=== PATIENT | female | born 1965 | race Caucasian/White ===

== ENCOUNTER 2018-05-11 07:37 | Emergency (ER) | payer OTHER ==
[~2018-05-11] VITALS: Ht 170.2 cm; Wt 63.5 kg
[2018-05-11 08:05] LABS: BASO # 0.1 x10^3/uL (0.0-0.2); BASO % 1 % (0-3); EOS # 0.2 x10^3/uL (0.0-0.7); EOS % 2 % (0-3); HEMATOCRIT 41.9 % (36.0-47.0); HEMOGLOBIN 14.9 g/dL (12.0-15.5); LYMPH % 41 % (24-48); MEAN CORPUSCULAR HEMOGLOBIN 33 pg (25-35); MEAN CORPUSCULAR HGB CONC 36 g/dL (31-37); MEAN CORPUSCULAR VOLUME 91 fL (79-100); MONO # 0.5 x10^3/uL (0.0-1.1); MONO % 5 % (0-9); NEUT % 51 % (31-73); PLATELET COUNT 264 x10^3/uL (140-400); RED BLOOD COUNT 4.59 x10^6/uL (3.50-5.40); RED CELL DISTRIBUTION WIDTH 13.4 % (11.5-14.5); WHITE BLOOD COUNT 9.7 x10^3/uL (4.0-11.0)
[2018-05-11 08:15] LABS: PROTHROMBIN TIME PATIENT 12.3 SEC (11.7-14.0)
[2018-05-11 08:18] LABS: CALCIUM 8.8 mg/dL (8.5-10.1); CREATININE 0.7 mg/dL (0.6-1.0); GFR 87.5; POTASSIUM 4.2 mmol/L (3.5-5.1)
--- NOTE | 2018-05-11 08:20 | EKG ---
[facility] [address] [place] [address] Test Date: 2018-05-11 Test Time: 07:43:15 Pat Name: MARK DAVIS Department: Room: Gender: F Lvn Lpn: : 1965 Requested By: JAZZMINE SHAIKH Order Number: [id number] Reading MD: Measurements Intervals Jesse Rate: 83 P: 74 NC: 144 QRS: 85 QRSD: 76 T: 64 QT: 374 QTc: 445 Interpretive Statements SINUS RHYTHM T ABNORMALITY IN ANTEROSEPTAL LEADS ABNORMAL ECG RI6.01 No previous ECG available for comparison
--- NOTE | 2018-05-11 08:31 | PHYS DOC ---
Past Medical History Past Medical History: Asthma, Gallstones Past Surgical History: Cholecystectomy, Hysterectomy Alcohol Use: None Drug Use: None Adult General Chief Complaint Chief Complaint: CHEST PAIN HPI HPI Patient is a 52 year old female who presents with neck and back pain. The patient has a chronic history of degenerative disc disease of her neck. She is status post surgery with rods placement. Today, she presents to the ER complaining of neck pain that radiates to the left shoulder and sometimes to her chest. She isn't having symptoms since last night. She states she awoke and could not turn her head to the left. She denies any shortness of breath. She denies recent illness or fever or cough. Pain is worse with movement and relieved when she is at rest. Pain is described as a muscle spasm. She took some Tylenol and some sort of muscle relaxer at home for symptom relief but these medications did not help. Review of Systems Review of Systems Constitutional: Denies fever or chills Eyes: Denies change in visual acuity HENT: Denies nasal congestion or sore throat Respiratory: Denies cough or shortness of breath Cardiovascular: No additional information not addressed in HPI GI: Denies abdominal pain, nausea : Denies dysuria or hematuria Musculoskeletal: chronic MSK pain Neurologic: Denies headache All other systems were reviewed and found to be within normal limits, except as documented in this note. Current Medications Current Medications Current Medications Medications (Trade) Dose Ordered Sig/John Start Time Stop Time Status Last Admin Dose Admin Lorazepam (Ativan) 0.5 mg 1X ONCE 05/11/18 09:15 05/11/18 09:16 DC 05/11/18 09:25 0.5 MG Morphine Sulfate (Morphine Sulfate) 4 mg 1X ONCE 05/11/18 09:15 05/11/18 09:16 DC 05/11/18 09:26 4 MG Ondansetron HCl (Zofran) 4 mg 1X ONCE 05/11/18 08:30 05/11/18 08:31 DC 05/11/18 08:32 4 MG Allergies Allergies Allergies Coded Allergies Type Severity Reaction Last Updated Verified erythromycin base Allergy Mild 05/11/18 Yes diflunisal Allergy Unknown 05/11/18 Yes Physical Exam Physical Exam Constitutional: Well developed, well nourished, no acute distress, non-toxic appearance HENT: Normocephalic, atraumatic, bilateral external ears normal, oropharynx moist Eyes: PERRLA, EOMI, conjunctiva normal Neck: Limited range of motion. Patient can look to the right but cannot turn or rotate the head to the left Cardiovascular:Heart rate regular rhythm, no murmur Lungs & Thorax: Bilateral breath sounds clear to auscultation Skin: Warm, dry Extremities: No tenderness Neurologic: Alert and oriented X 3 Psychologic: Affect normal Current Patient Data Vital Signs Vital Signs Date Time Temp Pulse Resp B/P (MAP) Pulse Ox O2 Delivery O2 Flow Rate FiO2 05/11/18 09:26 99 Room Air 05/11/18 09:00 85 18 137/81 (99) 05/11/18 08:00 97.5 97.5 Lab Values Laboratory Tests Test 05/11/18 07:50 White Blood Count 9.7 x10^3/uL (4.0-11.0) Red Blood Count 4.59 x10^6/uL (3.50-5.40) Hemoglobin 14.9 g/dL (12.0-15.5) Hematocrit 41.9 % (36.0-47.0) Mean Corpuscular Volume 91 fL (79-100) Mean Corpuscular Hemoglobin 33 pg (25-35) Mean Corpuscular Hemoglobin Concent 36 g/dL (31-37) Red Cell Distribution Width 13.4 % (11.5-14.5) Platelet Count 264 x10^3/uL (140-400) Neutrophils (%) (Auto) 51 % (31-73) Lymphocytes (%) (Auto) 41 % (24-48) Monocytes (%) (Auto) 5 % (0-9) Eosinophils (%) (Auto) 2 % (0-3) Basophils (%) (Auto) 1 % (0-3) Neutrophils # (Auto) 5.0 x10^3uL (1.8-7.7) Lymphocytes # (Auto) 4.0 x10^3/uL (1.0-4.8) Monocytes # (Auto) 0.5 x10^3/uL (0.0-1.1) Eosinophils # (Auto) 0.2 x10^3/uL (0.0-0.7) Basophils # (Auto) 0.1 x10^3/uL (0.0-0.2) Prothrombin Time 12.3 SEC (11.7-14.0) Prothrombin Time INR 0.9 (0.8-1.1) PTT 29 SEC (24-38) D-Dimer (Maryan) 0.37 ug/mlFEU (0.00-0.50) Sodium Level 139 mmol/L (136-145) Potassium Level 4.2 mmol/L (3.5-5.1) Chloride Level 106 mmol/L (98-107) Carbon Dioxide Level 25 mmol/L (21-32) Anion Gap 8 (6-14) Blood Urea Nitrogen 12 mg/dL (7-20) Creatinine 0.7 mg/dL (0.6-1.0) Estimated GFR (Cockcroft-Gault) 87.5 Glucose Level 92 mg/dL (70-99) Calcium Level 8.8 mg/dL (8.5-10.1) Troponin I Quantitative < 0.017 ng/mL (0.000-0.055) Laboratory Tests 05/11/18 07:50 Laboratory Tests 05/11/18 07:50 EKG EKG No STEMI Interpretation Time: 07:45 Radiology/Procedures Radiology/Procedures [] Course & Med Decision Making Course & Med Decision Making Pertinent Labs and Imaging studies reviewed. (See chart for details) Patient is evaluated immediately on arrival to her room. She does appear to have some discomfort on exam. Her pain is primarily musculoskeletal in nature and is worse when she turns her head. She does complain of radiation of pain to the back and to the chest so EKG was completed. Her EKG is normal. Will check troponin. We will check d-dimer. Medications are ordered for pain. 09:15: All results are reviewed. The patient's troponin is not elevated. She has been having symptoms for over 12 hours. Her chest x-ray is normal. Her d- dimer is not elevated. She currently continues to complain of pain rating it a 7 /10. Additional pain medications are ordered. Plan is for discharge home. The patient will be given some medications for pain and muscle spasm at home. She is advised follow-up with her primary care doctor. 10:20: Patient currently feeling improved after 2 rounds of pain medications given in the ER. She will be discharged home. Suspect her pain is musculoskeletal. There are no additional acute findings to explain her symptoms. She is provided some Percocet and some Valium at home for control of her symptoms. She is recommended to follow-up with her primary care physician. She is not driving herself home today. Megan Disclaimer Megan Disclaimer This electronic medical record was generated, in whole or in part, using a voice recognition dictation system. Departure Departure Disposition: HOME, SELF-CARE Condition: GOOD Scripts Diazepam (VALIUM) 5 Mg Tablet 5 MG PO BID for muscle spasms, #20 TAB Prov: JAZZMINE SHAIKH DO 05/11/18 Oxycodone/Apap 5-325 (PERCOCET 5-325 MG TABLET ) 1 Each Tablet 1-2 EACH PO Q6H PRN for SEVERE PAIN, #20 TAB pain Prov: JAZZMINE SHAIKH DO 05/11/18 JAZZMINE SHAIKH DO May 11, 2018 08:31
[2018-05-11] MEDS: ONDANSETRON PF 4 MG/2 ML VIAL. IV ONE (08:32)
[2018-05-11] MEDS: MORPHINE SULFATE 4 MG/ML VIAL. IV ONE ×2 (08:32→09:26)
--- NOTE | 2018-05-11 08:43 | RAD ---
Portable chest, 05/11/2018: HISTORY: Chest pain and pressure The heart size is normal. There is left hilar prominence which is unchanged since 10/12/2010 suggesting that this is a a vascular structure. No pulmonary infiltrate is seen. There is no evidence of pleural fluid. A surgical plate and screws is evident in the lower cervical spine. IMPRESSION: No acute cardiopulmonary abnormality is detected. Electronically signed by: Ignacio Hernandez MD (05/11/2018 8:38 AM) [facility]
[2018-05-11] MEDS ORDERED: OXYC1TAB15 PO (09:59)
[2018-05-11] MEDS ORDERED: DIAZ5TAB PO (09:59)
[2018-05-11 10:42] VITALS: BP 132/82
== END 2018-05-11 10:35 | disposition home or self-care (01) ==
LOC: ER 07:37
DX: R07.89 Other chest pain (principal); M54.2 Cervicalgia; M25.512 Pain in left shoulder; M62.830 Muscle spasm of back; J45.909 Unspecified asthma, uncomplicated; Z90.49 Acquired absence of other specified parts of digestive tract; Z90.710 Acquired absence of both cervix and uterus; Z88.1 Allergy status to other antibiotic agents; Z88.8 Allergy status to other drugs, medicaments and biological substances
CPT/HCPCS: 36415; 71045; 80048; 84484; 85025; 85379; 85610; 85730; 93005; 96374; 96375; 96376; 99284; J2060; J2270; J2405

== ENCOUNTER 2018-05-13 17:51 | Emergency (ER) | payer OTHER ==
[~2018-05-13] VITALS: Ht 170.2 cm; Wt 63.5 kg
[~2018-05-13 17:51] MED LIST: DIAZ5TAB PO; OXYC1TAB15 PO
[2018-05-13] MEDS ORDERED: IV NORMAL SALINE 1000ML BAG 1,000 ML IV ONE (18:30)
--- NOTE | 2018-05-13 18:34 | PHYS DOC ---
Past Medical History Past Medical History: Asthma, Gallstones Past Surgical History: Cholecystectomy, Hysterectomy Smokin Pack Per Day Alcohol Use: None Drug Use: None Adult General Chief Complaint Chief Complaint: CHEST PAIN HPI HPI Patient is a 52 YO F that presents with sharp left sided chest pain that radiates into her left arm that began this morning. Patient was seen in the ED two days ago for neck and back pain and was discharged home with a prescription of Valium and Percocet for musculoskeletal pain. Patient is status post bethany fixation fo the cervical spine in August. Patient reports taking her Percocet three hours ago and 325mg aspirin before coming to the ED. The pain is constant and not relieved with rest or associated with meals and is not exacerbated by palpation. Patient denies shortness of breath or calf pain. Patient reports family history of heart disease and has a history of smoking. Review of Systems Review of Systems Constitutional: Denies fever or chills [] Eyes: Denies change in visual acuity, redness, or eye pain [] HENT: Denies nasal congestion or sore throat [] Respiratory: Denies shortness of breath, reports cough [] Cardiovascular: Reports chest pain, denies palpitations [] GI: Denies abdominal pain, nausea, vomiting, or diarrhea [] : Denies dysuria or hematuria [] Musculoskeletal: Reports neck pain Integument: Denies rash or skin lesions [] Neurologic: Denies headache, focal weakness or sensory changes [] Complete systems were reviewed and found to be within normal limits, except as documented in this note. Current Medications Current Medications Current Medications Medications (Trade) Dose Ordered Sig/John Start Time Stop Time Status Last Admin Dose Admin Aspirin (Ashtyn Aspirin) 325 mg 1X ONCE 05/13/18 18:45 05/13/18 18:46 DC Fentanyl Citrate (Fentanyl 2ml Vial) 50 mcg 1X ONCE 05/13/18 18:45 05/13/18 18:46 DC 05/13/18 19:31 50 MCG Info (CONTRAST GIVEN -- Rx MONITORING) 1 each PRN DAILY PRN 05/13/18 18:45 05/15/18 18:44 Iohexol (Omnipaque 350 Mg/ml) 90 ml 1X ONCE 05/13/18 19:00 05/13/18 19:01 DC 05/13/18 18:59 90 ML Morphine Sulfate (Morphine Sulfate) 4 mg 1X ONCE 05/13/18 21:30 1/20/19 21:31 DC 05/13/18 21:36 4 MG Sodium Chloride 1,000 ml @ 1,000 mls/hr 1X ONCE 05/13/18 18:30 05/13/18 19:29 DC 05/13/18 19:32 1,000 MLS/HR Allergies Allergies Allergies Coded Allergies Type Severity Reaction Last Updated Verified diflunisal Allergy Intermediate 05/13/18 Yes erythromycin base Allergy Intermediate 05/13/18 Yes Physical Exam Physical Exam Constitutional: Well developed, well nourished, no acute distress, non-toxic appearance. [] HENT: Normocephalic, atraumatic, nose normal. [] Eyes: Conjunctiva normal, no discharge. [] Neck: Decreased ROM, paraspinal tenderness, no midline tenderness [] Cardiovascular: Heart rate regular rhythm, no murmur [] Lungs & Thorax: Bilateral breath sounds clear to auscultation [] Abdomen: Soft, no tenderness. [] Skin: Warm, dry, no erythema, no rash. [] Back: Upper thoracic paraspinal tenderness. Extremities: No tenderness, ROM intact, no edema. [] Neurologic: Alert and oriented X 3, no focal deficits noted. [] Psychologic: Affect normal, judgement normal, mood normal. [] Current Patient Data Vital Signs Vital Signs Date Time Temp Pulse Resp B/P (MAP) Pulse Ox O2 Delivery O2 Flow Rate FiO2 05/13/18 21:36 20 100 Room Air 05/13/18 18:02 97.6 89 181/100 (127) 97.6 Lab Values Laboratory Tests Test 05/13/18 19:55 05/13/18 21:40 White Blood Count 6.5 x10^3/uL (4.0-11.0) Red Blood Count 4.42 x10^6/uL (3.50-5.40) Hemoglobin 14.5 g/dL (12.0-15.5) Hematocrit 40.8 % (36.0-47.0) Mean Corpuscular Volume 92 fL (79-100) Mean Corpuscular Hemoglobin 33 pg (25-35) Mean Corpuscular Hemoglobin Concent 35 g/dL (31-37) Red Cell Distribution Width 13.3 % (11.5-14.5) Platelet Count 242 x10^3/uL (140-400) Neutrophils (%) (Auto) 67 % (31-73) Lymphocytes (%) (Auto) 25 % (24-48) Monocytes (%) (Auto) 7 % (0-9) Eosinophils (%) (Auto) 1 % (0-3) Basophils (%) (Auto) 1 % (0-3) Neutrophils # (Auto) 4.3 x10^3uL (1.8-7.7) Lymphocytes # (Auto) 1.6 x10^3/uL (1.0-4.8) Monocytes # (Auto) 0.5 x10^3/uL (0.0-1.1) Eosinophils # (Auto) 0.1 x10^3/uL (0.0-0.7) Basophils # (Auto) 0.0 x10^3/uL (0.0-0.2) Prothrombin Time 13.0 SEC (11.7-14.0) Prothrombin Time INR 1.0 (0.8-1.1) PTT 28 SEC (24-38) Sodium Level 137 mmol/L (136-145) Potassium Level 4.1 mmol/L (3.5-5.1) Chloride Level 104 mmol/L (98-107) Carbon Dioxide Level 26 mmol/L (21-32) Anion Gap 7 (6-14) Blood Urea Nitrogen 9 mg/dL (7-20) Creatinine 0.5 mg/dL (0.6-1.0) L Estimated GFR (Cockcroft-Gault) 129.1 BUN/Creatinine Ratio 18 (6-20) Glucose Level 102 mg/dL (70-99) H Calcium Level 8.5 mg/dL (8.5-10.1) Magnesium Level 1.9 mg/dL (1.8-2.4) Total Bilirubin 1.1 mg/dL (0.2-1.0) H Aspartate Amino Transferase (AST) 900 U/L (15-37) H Alanine Aminotransferase (ALT) 859 U/L (14-59) H Alkaline Phosphatase 234 U/L (46-116) H Creatine Kinase 32 U/L (26-192) Creatine Kinase MB (Mass) 0.7 ng/mL (0.0-3.6) Creatine Kinase MB Relative Index % (0-4) Troponin I Quantitative < 0.017 ng/mL (0.000-0.055) < 0.017 ng/mL (0.000-0.055) YM-Hxr-M-Type Natriuretic Peptide 57 pg/mL (0-124) Total Protein 6.5 g/dL (6.4-8.2) Albumin 3.3 g/dL (3.4-5.0) L Albumin/Globulin Ratio 1.0 (1.0-1.7) Lipase 205 U/L (73-393) Laboratory Tests 05/13/18 19:55 Laboratory Tests 05/13/18 19:55 EKG EKG @1756 Sinus rhythm at 82BPM, no ST elevation Radiology/Procedures Radiology/Procedures PROCEDURE: CT ANGIOGRAPHY CHEST CTA scan of the Chest with Contrast (Pulmonary Embolism protocol) 05/13/2018 Clinical History: Chest pain. Technique: After the intravenous administration of 90 cc of Isovue-370, contiguous, 0.625 mm axial sections were obtained through the chest. 2.5 mm axial and 3D MIP coronal reconstructed images were obtained. One or more of the following individualized dose reduction techniques were utilized for this study: 1. Automated exposure control. 2. Adjustment of the mA and/or kV according to patient size. 3. Use of iterative reconstruction technique. Findings: Comparison is made to portable chest radiograph dated 05/11/2018. No filling defect is seen within the major branches of either pulmonary artery. There is no CT evidence of pulmonary embolism. The heart and thoracic aorta are within normal limits. Minimal dependent subsegmental atelectasis is seen involving both lungs. No area of consolidation, pleural effusion or pneumothorax is seen. Impression: There is no CT evidence of pulmonary embolism. Electronically signed by: Tarun Krishna MD (05/13/2018 7:26 PM) [facility] Course & Med Decision Making Course & Med Decision Making Pertinent Labs and Imaging studies reviewed. (See chart for details) Patient is a 52-year-old female that presents to the ED with chest pain started today. Patient was just in the ED 2 days ago for evaluation of neck pain. History was concerning for possible PE or acute cardiac pathology. EKG was negative for abnormality, no ST elevation. CT angio was negative for acute pathology. CMP shows AST 900, ALT of 859, and alkaline phosphatase of 234. We discussed the option of admission and further evaluation of these findings but the patient requested discharge home and she would follow-up with her PCP. Patient requested pain medication but she was prescribed Valium and Oxycodone two days ago so I offered a muscle relaxant and steroid instead. Patient stable for discharge with outpatient follow-up with PCP. Discussed findings and plan with patient and family, who acknowledge understanding and agreement. Megan Disclaimer Dragon Disclaimer This electronic medical record was generated, in whole or in part, using a voice recognition dictation system. Departure Departure Impression: Primary Impression: Chest pain Additional Impression: Elevated liver enzymes Disposition: HOME, SELF-CARE Condition: STABLE Referrals: MOHINDER BAHENA MD (PCP) Patient Instructions: Chest Pain (Nonspecific), [id number] Additional Instructions: Please follow up closely with your doctor for recheck of your elevated liver enzymes. Scripts Orphenadrine Citrate (ORPHENADRINE CITRATE) 100 Mg Tablet.er 100 MG PO BID PRN for MUSCLE PAIN, #14 Prov: ROSALIO DONOVAN DO 05/13/18 Prednisone (PREDNISONE) 20 Mg Tablet 2 TAB PO DAILY, #10 TAB Prov: ROSALIO DONOVAN DO 05/13/18 Problem Qualifiers Primary Impression: Chest pain Chest pain type: unspecified Qualified Codes: R07.9 - Chest pain, unspecified ROSALIO DONOVAN DO May 13, 2018 18:34
[2018-05-13] MEDS ORDERED: fentaNYL PF VIAL 100 MCG/2 ML VIAL IV ONE (18:45)
[2018-05-13] MEDS ORDERED: CONTRAST GIVEN. MC PRN (18:45)
[2018-05-13] MEDS ORDERED: ASPIRIN 325 MG TABLET PO ONE (18:45)
[2018-05-13] MEDS ORDERED: IOHEXOL 350 MG/ML 100 ML VIAL. IV ONE (19:00)
--- NOTE | 2018-05-13 19:31 | RAD ---
CTA scan of the Chest with Contrast (Pulmonary Embolism protocol) 05/13/2018 Clinical History: Chest pain. Technique: After the intravenous administration of 90 cc of Isovue-370, contiguous, 0.625 mm axial sections were obtained through the chest. 2.5 mm axial and 3D MIP coronal reconstructed images were obtained. One or more of the following individualized dose reduction techniques were utilized for this study: 1. Automated exposure control. 2. Adjustment of the mA and/or kV according to patient size. 3. Use of iterative reconstruction technique. Findings: Comparison is made to portable chest radiograph dated 05/11/2018. No filling defect is seen within the major branches of either pulmonary artery. There is no CT evidence of pulmonary embolism. The heart and thoracic aorta are within normal limits. Minimal dependent subsegmental atelectasis is seen involving both lungs. No area of consolidation, pleural effusion or pneumothorax is seen. Impression: There is no CT evidence of pulmonary embolism. Electronically signed by: Tarun Krishna MD (05/13/2018 7:26 PM) [facility]
[2018-05-13 20:14] LABS: BASO % 1 % (0-3); EOS # 0.1 x10^3/uL (0.0-0.7); EOS % 1 % (0-3); HEMATOCRIT 40.8 % (36.0-47.0); HEMOGLOBIN 14.5 g/dL (12.0-15.5); LYMPH # 1.6 x10^3/uL (1.0-4.8); LYMPH % 25 % (24-48); MEAN CORPUSCULAR HEMOGLOBIN 33 pg (25-35); MEAN CORPUSCULAR HGB CONC 35 g/dL (31-37); MEAN CORPUSCULAR VOLUME 92 fL (79-100); MONO # 0.5 x10^3/uL (0.0-1.1); MONO % 7 % (0-9); NEUT # 4.3 x10^3uL (1.8-7.7); NEUT % 67 % (31-73); PLATELET COUNT 242 x10^3/uL (140-400); RED BLOOD COUNT 4.42 x10^6/uL (3.50-5.40); RED CELL DISTRIBUTION WIDTH 13.3 % (11.5-14.5); WHITE BLOOD COUNT 6.5 x10^3/uL (4.0-11.0)
[2018-05-13] MEDS ORDERED: MORPHINE SULFATE 4 MG/ML VIAL. IV ONE ×2 (20:30→21:30)
[2018-05-13 20:36] LABS: CALCIUM 8.5 mg/dL (8.5-10.1); CREATININE 0.5 mg/dL (0.6-1.0); GFR 129.1; POTASSIUM 4.1 mmol/L (3.5-5.1)
[2018-05-13 20:45] LABS: CREATINE KINASE 32 U/L (26-192)
[2018-05-13 20:49] LABS: ALBUMIN 3.3 g/dL (3.4-5.0); MAGNESIUM 1.9 mg/dL (1.8-2.4); TOTAL BILIRUBIN 1.1 mg/dL (0.2-1.0); TOTAL PROTEIN 6.5 g/dL (6.4-8.2)
[2018-05-13 21:53] VITALS: BP 170/81
[2018-05-13] MEDS ORDERED: ORPH100T PO (22:32)
[2018-05-13] MEDS ORDERED: PRED20TA PO (22:32)
--- NOTE | 2018-05-14 06:31 | EKG ---
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
== END 2018-05-13 22:30 | disposition home or self-care (01) ==
LOC: ER 17:51
DX: R07.89 Other chest pain (principal); R74.8 Abnormal levels of other serum enzymes; M54.2 Cervicalgia; M79.10 Myalgia, unspecified site; J45.909 Unspecified asthma, uncomplicated; Z90.49 Acquired absence of other specified parts of digestive tract; Z90.89 Acquired absence of other organs; F17.200 Nicotine dependence, unspecified, uncomplicated; Z88.1 Allergy status to other antibiotic agents; Z88.8 Allergy status to other drugs, medicaments and biological substances
CPT/HCPCS: 36415; 71275; 80053; 82553; 83690; 83735; 83880; 84484; 85025; 85610; 85730; 93005; 96374; 96375; 96376; 99284; J2270; J3010; J7030; Q9967